=== PATIENT | male | born 1985 ===

== ENCOUNTER 2023-10-21 14:51 | Outpatient (AMB) | payer OTHER, SELFPAY ==
--- NOTE | 2023-10-21 15:12 | MHC.PC.OV ---
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 Allergies No Known Allergies Allergy (Verified 10/21/23 15:19) Tobacco use date assessed: 10/21/23 Dental Screening Dental Screen Date: 10/21/23 Did you have a dental visit in the last 12 months?: Yes Did you have a dental problem in the last 6 months where you did not have access to dental care?: No Was dental information given to patient?: Patient has dentist HPI Recreation Facilities Supervisor Request PE HPI Details New patient Prior PCP:? None since childhood Last office visit/CPE: Acute issue(s): PMHx: abnormal prolactin level, alopecia areata, Lyme disease, joint pain, Low testosterone SurgHx: none FHx: Mom: Asthma. Dad: HTN. Brother: Asthma. SocHx: Nonsmoker. EtOH weekends. No drugs. PFSH Medical History (Updated 10/21/23 @ 16:05 by Don Weinstein) Migraines Torn ACL Surgical History (Updated 10/21/23 @ 15:23 by Soco Duke [facility]) No pertinent past surgical history Family History (Updated 10/21/23 @ 15:27 by Soco Duke CMA) Mother Asthma Father High blood pressure Paternal Grandfather Thyroid disease Maternal Grandmother Thyroid disease Paternal Grandfather Thyroid disease Sister Asthma Brother Asthma Social History (Updated 10/21/23 @ 15:36 by Soco Duke CMA) Household Members: None Both parents involved: No Caregiver staying overnight: No Housing: Apartment Are you a primary cna caregiver to a significant other at home: No Do you presently have visiting nurse or other home services: No 75 years or older and lives alone: No Alcohol intake: current Patient Tobacco Use Status: Never used Tobacco e-Cigarette/Vaping Use: Never Used Special azucena needs: Yes service: No Current occupational status: employed 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 1. Little interest or pleasure in doing things: several days 2. Feeling down, depressed, or hopeless: several days 3. Trouble falling or staying asleep, or sleeping too much: nearly every day 4. Feeling tired or having little energy: nearly every day 5. Poor appetite or overeating: nearly every day 6. Feeling bad about yourself - or that you are a failure or have let yourself or your family down: several days 7. Trouble concentrating on things, such as reading the newspaper or watching television: more than half the days 8. Moving or speaking so slowly that other people could have noticed. Or the opposite - being so fidgety or restless that you have been moving around a lot more than usual: more than half the days 9. Thoughts that you would be better off or of hurting yourself in some way: not at all Total score: 16 Depression Screening Interpretation: Positive Depression Screening Done: Yes Source: Developed by Drs. Rl Neal, Melinda Aguilar, Jun Guerrero and colleagues, with an educational naila from [employer]. Thrive Questionnaire Date Thrive assessed: 10/21/23 I am a: Patient What is your living situation today?: I have a steady place to live Within the past 12 months, did the food you bought not last and you didn't have the money to get more?: Sometimes True Within the past 12 months, did you worry whether your food would run out before you got money to buy more?: Sometimes True Do you have trouble paying for medicines?: No Do you have trouble getting transportation to medical appointments?: No Do you have trouble paying your heating and electricity bill?: No Do you have trouble taking care of your child, family member or friend?: No Do you have trouble with day-to-day activities such as bathing, preparing meals, shopping, managing finances, etc.?: No Are you currently unemployed and looking for a job?: Yes Are you interested in more education?: Yes AUDIT C Alcohol Use Questionnaire (AUDIT-C) 1. How often do you have a drink containing alcohol?: 2-3 times a week 2. How many drinks containing alcohol do you have on a typical day when you are drinking?: 3 or 4 3. How often do you have six or more drinks on one occasion?: Never Total Score: 4 COURTNEY-7 AMB Questionnaire COURTNEY-7 Date COURTNEY - 7 assessed: 10/21/23 Feeling nervous, anxious, or on edge: 1 = Several days Not being able to stop or control worryin = Not at all Worrying too much about different things: 0 = Not at all Trouble relaxin = Nearly every day Being so restless that it is hard to sit still: 2 = More than half the days Becoming easily annoyed or irritable: 1 = Several days Feeling afraid as if something awful might happen: 0 = Not at all Total COURTNEY-7 score (0-4 normal; 5-9 mild; 10-14 moderate; 15-21 severe): 7 Source: Developed by Drs. Rl Neal, Melinda Aguilar, Jun Guerrero and colleagues, with an educational naila from [employer]. Review of Systems Const Denies chills, Denies fatigue, Denies fever(s), Denies headache(s) and Denies weakness ENT Denies dizziness and Denies headache(s) Card Denies chest pain, Denies lightheadedness, Denies dyspnea and Denies other (Palpitations) Resp Denies cough, Denies dyspnea, Denies wheezing and Denies other ( shortness of breath) Musc Denies numbness and Denies tingling Neuro Denies dizziness, Denies headache(s), Denies numbness, Denies tingling, Denies paresthesias and Denies weakness Psych Denies anxiety and Denies depression Endo Denies fatigue Aller/Immun Denies wheezing Physical exam (Primary Care) Vital Signs: Last Vital Signs Pulse 58 10/21/23 15:16 BP 120/78 10/21/23 15:16 Pulse Ox 100 10/21/23 15:16 Oxygen Delivery Method Room Air 10/21/23 15:16 BMI result Body Mass Index 20.7 Tobacco/Smoking Status: Tobacco use Status Tobacco use date assessed 10/21/23 10/21/23 15:39 Patient Tobacco Use Status Never used Tobacco 10/21/23 15:39 e-Cigarette/Vaping Use Never Used 10/21/23 15:39 PHQ-9: PHQ-9 Score PHQ-9: Total score 16 10/21/23 15:43 Depression Screening Interpretation: Positive Thrive Assessment: Date of Thrive Assessment Date Thrive assessed 10/21/23 10/21/23 15:39 Const General: no acute distress and well developed Nutritional Appearance: well nourished Orientation/consciousness: patient oriented x3 [facility] Head: Yes normocephalic and Yes atraumatic Eyes General: appearance normal, both eyes and all related structures Pupils: Equal, round and reactive pupils present EOM: EOMs intact bilaterally Resp Effort & Inspection: normal respiratory effort Auscultation: clear to auscultation bilaterally Cardio Rate: regular rate Rhythm: regular rhythm Heart sounds: S1 normal heart sound present, S2 normal heart sound present, no gallops, no murmurs and no rubs Back/Spine/Pelvis Thoracic/Lumbar Spine: Thoracic/lumbar scoliosis Neuro General: patient oriented x3 and gait normal Cranial nerves: Yes Equal, round and reactive pupils present Psych Affect: normal affect Assessment and Plan Assessment & Plan (1) Abnormal prolactin level: Code(s): R79.89 - Other specified abnormal findings of blood chemistry Plan: And?had?very?mildly?elevated?prolactin?level Should?be?repeated Lab?order (2) Alopecia areata: Code(s): L63.9 - Alopecia areata, unspecified Plan: Alopecia?areata Can?be?referred?to?Dermatology?if?patient?wishes (3) Low testosterone: Code(s): R79.89 - Other specified abnormal findings of blood chemistry Plan: Patient?notes?history?of?low?testosterone?level Will?check?level (4) History of Lyme disease: Code(s): Z86.19 - Personal history of other infectious and parasitic diseases Plan: Patient?notes?history?of?positive?Lyme However?on?review?of?Lyme?test,?only?1?band?is?positive?and?this?is?a?negative?test?result Repeating?test (5) Joint pain: Code(s): M25.50 - Pain in unspecified joint Plan: Unclear?cause Checking?inflammatory?markers We?discussed?that?there?are?many?causes?of?joint?pain?and?we?will?work?at?ruling?these?out?and?investigating. We?did?discuss?that?we?did?not?always?find?an?underlying?diagnosis?and?that?fibromyalgia?and?mood?disorders?are?also?on?the?differential?diagnosis?as?diagnoses?of?exclusion. Encouraged?exercise (6) Scoliosis: Code(s): M41.9 - Scoliosis, unspecified Plan: Patient?has?mild?scoliosis (7) Laboratory exam ordered as part of routine general medical examination: Code(s): Z00.00 - Encounter for general adult medical examination without abnormal findings Plan: Check?lab Orders: Orders Microalbumin, Random (w Creat) Today I10 - Essential (primary) hypertension TSH reflex Free T4 Today Z00.00 - Encounter for general adult medical examination without abnormal findings Lyme IgG/IgM w/reflex to WB Today W57.XXXA - Bitten or stung by nonvenomous insect and other nonvenomous arthropods, initial encounter Erythrocyte Sedimentation Rate Today M25.50 - Pain in unspecified joint Rheumatoid Factor Today M25.50 - Pain in unspecified joint Cyclic Citrullinated Peptide Today M25.50 - Pain in unspecified joint Comprehensive [place]. Panel Fast Today Z00.00 - Encounter for general adult medical examination without abnormal findings Lipid Panel Today Z00.00 - Encounter for general adult medical examination without abnormal findings UA and rflx microscopic Today Z00.00 - Encounter for general adult medical examination without abnormal findings Complete Blood Count Auto Diff Today Z00.00 - Encounter for general adult medical examination without abnormal findings Prolactin Today R79.89 - Other specified abnormal findings of blood chemistry CRP High Sensitivity Today M25.50 - Pain in unspecified joint Coding Level of Care Code New Pt Level 3 (18849) Diagnoses Abnormal prolactin level R79.89 Alopecia areata L63.9 Low testosterone R79.89 History of Lyme disease Z86.19 Joint pain M25.50 Scoliosis M41.9 Laboratory exam ordered as part of routine general medical examination Z00.00
[2023-10-21 15:16] VITALS: BP 120/78; PULSE 58; O2SAT 100; BMI 20.7
== END 2023-10-21 16:16 | disposition home or self-care (01) ==
PROVIDERS: PCP Family Medicine; Visit Provider Family Medicine
DX: R79.89 Other specified abnormal findings of blood chemistry (principal); L63.9 Alopecia areata, unspecified; Z86.19 Personal history of other infectious and parasitic diseases; M25.50 Pain in unspecified joint; M41.9 Scoliosis, unspecified; Z00.00 Encounter for general adult medical examination without abnormal findings
CPT/HCPCS: 99203

== ENCOUNTER 2024-01-06 07:27 | Outpatient (REF) | payer OTHER, SELFPAY ==
[2024-01-06 11:34] LABS: MANUAL DIFF FLAG NO
[2024-01-06 11:35] LABS: Eosinophils Absolute Auto 0.1 X10*3/uL (0.0-0.4); Eosinophils Percent Auto 1.7 % (0-4); Hematocrit 41.7 % (42.0-52.0); Hemoglobin 13.8 g/dl (14.0-18.0); Lymphocytes Absolute Auto 1.9 X10*3/uL (1.2-4.9); Lymphocytes Percent Auto 45.2 % (20-40); Mean Corpuscular HGB Conc 33.1 g/dl (31.0-36.0); Mean Corpuscular Hemoglobin 29.7 pg (27.0-33.0); Mean Corpuscular Volume 89.7 fL (80.0-98.0); Mean Platelet Volume 10.7 fL (9.4-12.4); Monocytes Absolute Auto 0.4 X10*3/uL (0.1-1.2); Monocytes Percent Auto 9.4 % (2-11); Neutrophils Absolute Auto 1.8 x10*3/uL (2.0-8.3); Neutrophils Percent Auto 42.7 % (45-73); Platelet Count 293 X10*3/uL (160-400); Red Blood Count 4.65 X10*6/uL (4.60-5.80); Red Cell Distribution Width 12.8 % (11.0-16.0); White Blood Count 4.1 X10*3/uL (4.8-10.8)
[2024-01-06 11:51] LABS: Appearance Urine Clear; Color Urine Yellow; Glucose Urine UA Negative (Negative); Leukocyte Esterase Urine Negative (Negative); Nitrite Urine Negative (Negative); PH 6.5 (5.0-9.0); Specific Gravity - Urine <= 1.005 (1.005-1.025); Urine Blood Negative (Negative); Urine Ketones Negative (Negative); Urine Protein Negative (Neg-Trace)
[2024-01-06 11:53] LABS: Rheumatoid Factor < 13.0 IU/mL (<15.0)
[2024-01-06 12:02] LABS: Creatinine Urine 34.52 mg/dL; Microalbumin Urine < 5.0 mg/L
[2024-01-06 12:27] LABS: Alanine Aminotransferase 24 U/L (0-40); Albumin Level 4.9 g/dL (3.5-5.0); Alkaline Phosphatase 55 U/L (39-117); Anion Gap 14 (12-20); Aspartate Amino Transferase 22 U/L (5-37); Bilirubin Total 0.4 mg/dL (0.0-1.0); Blood Urea Nitrogen 18 mg/dL (9-16); Carbon Dioxide 26 mmol/L (22-29); Chloride 107 mmol/L (96-108); Cholesterol 191 mg/dL (<200); Estimated Glomerular Filt Rate > 60; Glucose Fasting 106 mg/dL (60-99); HDL Cholesterol 75 mg/dL (>40); LDL Cholesterol Calculated 107 mg/dL (<100); Potassium 4.6 mmol/L (3.3-5.1); Sodium 142 mmol/L (135-145); Total Protein 7.5 g/dL (6.5-8.0); Triglycerides 47 mg/dL (<150)
[2024-01-06 12:29] LABS: Erythrocyte Sedimentation Rate 2 MM/HR (0-15)
[2024-01-06 12:32] LABS: TSH reflex Free T4 1.22 uIU/mL (0.32-4.0)
[2024-01-08 01:48] LABS: Prolactin 4.6 ng/mL (2.0-18.0)
[2024-01-08 03:13] LABS: Lyme Abs Screen <0.90 index
[2024-01-10 13:43] LABS: CRP High Sensitivity <0.3 mg/L
[2024-01-10 15:08] LABS: Cyclic Citrullinated Peptide <16 UNITS
== END 2024-01-06 07:28 | disposition home or self-care (01) ==
LOC: HO.WFDLDS 07:27
PROVIDERS: Visit Provider Family Medicine
DX: Z00.00 Encounter for general adult medical examination without abnormal findings (principal); T14.8XXA Other injury of unspecified body region, initial encounter; W57.XXXA Bitten or stung by nonvenomous insect and other nonvenomous arthropods, initial encounter; I10 Essential (primary) hypertension; R79.89 Other specified abnormal findings of blood chemistry; M25.50 Pain in unspecified joint
CPT/HCPCS: 36415; 80053; 80061; 81003; 82043; 82570; 84146; 84443; 85025; 85652; 86141; 86200; 86431; 86617; 86618

== ENCOUNTER 2024-01-11 13:51 | Outpatient (AMB) | payer OTHER, SELFPAY ==
[2024-01-11 13:53] VITALS: BP 126/74; PULSE 84; RESP 13; TEMP 36.6; O2SAT 99; BMI 20.7
--- NOTE | 2024-01-11 13:53 | A.OFFPC_ITS ---
Vital Signs 01/11/24 13:53 Height 5 ft 10 in Weight 144 lb 6 oz BMI 20.7 BP 126/74 Blood Pressure Location Rt brachial Position Sitting Respiration 13 Pulse 84 Pulse Source Pulse Oximeter Temp 97.9 F Temp Source Temporal Artery Scan Pulse Oximetry (%) 99 Oxygen Delivery Method Room Air Intake Visit Reasons: CPE with f/u labs and health maint. Business Banking Officer Required: No Accompanied by: Self / Same As Patient Allergies No Known Allergies Allergy (Verified 01/11/24 13:58) Tobacco use date assessed: 01/11/24 Dental Screening Dental Screen Date: 01/11/24 Did you have a dental visit in the last 12 months?: Yes Did you have a dental problem in the last 6 months where you did not have access to dental care?: No Was dental information given to patient?: Patient has dentist HPI CPE with f/u labs and health maint. HPI Details 38 y/o male presents for a CPE with f/u labs and health maintenance. Labs were drawn 01/06/24. Reviewed labs with pt. WBC mildly low at 4.1. Hgb/Hct mildly low. Elevated fasting glucose of 106. Triglycerides 47. TC 191. LDL 107. HDL 75. Pt reports GERD and has been using tums for relief. Pt reports a slight tremor. [facility] Medical History (Updated 01/11/24 @ 14:39 by Don Weinstein) Migraines Torn ACL Surgical History H/O wisdom tooth extraction No pertinent past surgical history Family History Mother Asthma Father High blood pressure Paternal Grandfather Thyroid disease Maternal Grandmother Thyroid disease Paternal Grandfather Thyroid disease Sister Asthma Brother Asthma Other Substance abuse Social History Household Members: None Both parents involved: No Caregiver staying overnight: No Housing: Apartment Are you a primary auto care center manager to a significant other at home: No Do you presently have visiting nurse or other home services: No 75 years or older and lives alone: No Alcohol intake: current Patient Tobacco Use Status: Never used Tobacco e-Cigarette/Vaping Use: Never Used Special azucena needs: Yes service: No Current occupational status: employed 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 1. Little interest or pleasure in doing things: not at all 2. Feeling down, depressed, or hopeless: not at all 3. Trouble falling or staying asleep, or sleeping too much: not at all 4. Feeling tired or having little energy: nearly every day 5. Poor appetite or overeating: not at all 6. Feeling bad about yourself - or that you are a failure or have let yourself or your family down: not at all 7. Trouble concentrating on things, such as reading the newspaper or watching television: not at all 8. Moving or speaking so slowly that other people could have noticed. Or the opposite - being so fidgety or restless that you have been moving around a lot more than usual: not at all 9. Thoughts that you would be better off or of hurting yourself in some way: not at all Total score: 3 Depression Screening Interpretation: Negative Depression Screening Done: Yes 52110 - PHQ-9 Billing: Yes Source: Developed by Drs. Rl Neal, Melinda Aguilar, Jun Guerrero and colleagues, with an educational naila from [email or web address]. Thrive Questionnaire Date Thrive assessed: 01/11/24 I am a: Patient What is your living situation today?: I have a steady place to live Within the past 12 months, did the food you bought not last and you didn't have the money to get more?: Never true Within the past 12 months, did you worry whether your food would run out before you got money to buy more?: Never true Do you have trouble paying for medicines?: No Do you have trouble getting transportation to medical appointments?: No Do you have trouble paying your heating and electricity bill?: No Do you have trouble taking care of your child, family member or friend?: No Do you have trouble with day-to-day activities such as bathing, preparing meals, shopping, managing finances, etc.?: No Are you currently unemployed and looking for a job?: No Are you interested in more education?: Yes Please select the resources that you would like help with: Education Currently or been in a relationship where the following occur: no concerns reported THRIVE Score: 0 AUDIT C Alcohol Use Questionnaire (AUDIT-C) 1. How often do you have a drink containing alcohol?: 2-3 times a week 2. How many drinks containing alcohol do you have on a typical day when you are drinking?: 3 or 4 3. How often do you have six or more drinks on one occasion?: Less than monthly Total Score: 5 COURTNEY-7 AMB Questionnaire COURTNEY-7 Date COURTNEY - 7 assessed: 10/21/23 Feeling nervous, anxious, or on edge: 1 = Several days Not being able to stop or control worryin = Not at all Worrying too much about different things: 0 = Not at all Trouble relaxin = Not at all Being so restless that it is hard to sit still: 0 = Not at all Becoming easily annoyed or irritable: 0 = Not at all Feeling afraid as if something awful might happen: 0 = Not at all Total COURTNEY-7 score (0-4 normal; 5-9 mild; 10-14 moderate; 15-21 severe): 1 Source: Developed by Drs. Rl Neal, Melinda Aguilar, Jun Guerrero and colleagues, with an educational naila from [email or web address]. COURTNEY-7 Assessment Billing COURTNEY-7 Assessment Tool: COURTNEY-7 Assessment 08361 Review of Systems Const Denies chills, Denies fatigue, Denies fever(s), Denies headache(s) and Denies weakness Eyes Denies change in vision ENT Denies dizziness, Denies headache(s), Denies hearing loss, Denies nasal congestion, Denies sinus pain, Denies sinus pressure and Denies sore throat Card Denies chest pain, Denies lightheadedness, Denies dyspnea and Denies other (palpitations) Resp Denies cough, Denies dyspnea and Denies wheezing GI Denies abdominal pain, Denies melena, Denies hematochezia, Denies change in bowel habits, Denies dyspepsia and Denies nausea Denies hematuria and Denies dysuria Musc Denies abnormal gait, Denies myalgias, Denies arthralgias, Denies numbness and Denies tingling Skin/Breast Denies rash, Denies unusual bruising and Denies wounds Neuro Denies abnormal gait, Denies dizziness, Denies headache(s), Denies memory loss, Denies numbness, Denies Sensory deficit (Neuro), Denies tingling, Reports tremor(s) and Denies weakness Psych Denies anxiety, Denies depression and Denies memory loss Endo Denies cold intolerance, Denies fatigue, Denies heat intolerance, Denies polydipsia and Denies polyuria Brett/Lymph Denies easy bleeding and Denies easy bruising Aller/Immun Denies wheezing Physical exam (Primary Care) Vital Signs: Last Vital Signs Temp 97.9 F 01/11/24 13:53 Pulse 84 01/11/24 13:53 Resp 13 01/11/24 13:53 BP 126/74 01/11/24 13:53 Pulse Ox 99 01/11/24 13:53 Oxygen Delivery Method Room Air 01/11/24 13:53 BMI result Body Mass Index 20.7 Tobacco/Smoking Status: Tobacco use Status Tobacco use date assessed 01/11/24 01/11/24 14:03 Patient Tobacco Use Status Never used Tobacco 01/11/24 14:03 e-Cigarette/Vaping Use Never Used 01/11/24 14:03 PHQ-9: PHQ-9 Score PHQ-9: Total score 3 01/11/24 14:18 Depression Screening Interpretation: Negative Thrive Assessment: Date of Thrive Assessment Date Thrive assessed 01/11/24 01/11/24 14:03 Currently or been in a relationship where the following occur: no concerns reported Const General: no acute distress, well developed, alert and awake Nutritional Appearance: well nourished Orientation/consciousness: patient oriented x3 HEN[facility] Head: Yes normocephalic and Yes atraumatic Ears: hearing grossly normal bilaterally and TM's normal bilaterally General nose exam: Normal external nose present and Normal nares present Mouth: Normal oral and palatal mucosa present and moist mucous membranes Teeth and gingiva: dentition normal Throat: Yes posterior oropharynx normal Eyes General: appearance normal, both eyes and all related structures Pupils: Equal, round and reactive pupils present and Pupil accommodation reflex normal EOM: EOMs intact bilaterally Neck Neck: Yes normal visual inspection, Yes no lymphadenopathy and Yes trachea midline Thyroid: Thyroid normal Carotids: no bruits Lymphatic: no lymphadenopathy noted Chest Chest palpation & inspection: normal inspection of the chest Resp Effort & Inspection: normal respiratory effort Auscultation: clear to auscultation bilaterally Cardio Rate: regular rate Rhythm: regular rhythm Heart sounds: S1 normal heart sound present, S2 normal heart sound present, no gallops, no murmurs and no rubs Bruits: no abdominal aortic bruits and no carotid bruits GI Palpation (GI): No Abdominal aortic bruit present, Soft to palpation, nontender, No hepatosplenomegaly present and No Rebound tenderness present Auscultation: normal bowel sounds General: Yes no CVA tenderness Back/Spine/Pelvis Back: no CVA tenderness Cervical Spine: cervical ROM normal and No Cervical spine tenderness Thoracic/Lumbar Spine: thoraco-lumbar ROM normal, No pain with thoraco-lumbar ROM, No thoracic spinal tenderness and No lumbar spinal tenderness Skin Lesions: no lesions Rashes: no rashes Trauma: no lacerations or abrasions Wounds: no wounds Nails: normal Neuro Other: Tremor of his tongue and fine tremor of his hands General: patient oriented x3 Cranial nerves: Yes Equal, round and reactive pupils present Cognition (Neuro): normal cognition Gait exam (Neuro): Normal gait present Motor exam (neuro): 5/5 motor strength present throughout Sensory Exam: No Sensory deficit (Neuro) Deep tendon reflexes (DTR's): Right patellar reflex intensity grade: 2+ and Left patellar reflex intensity grade: 2+ Extrem General: Yes normal to inspection and No edema Psych Appearance: grossly normal Affect: normal affect Attitude: cooperative Thought process: Normal thought process present Results AMB Hemoglobin A1c AMB Hemoglobin A1c 4.9 % Last Edit by Soco Duke CMA on 01/11/24 14:32 Assessment and Plan Assessment & Plan (1) Mild anemia: Code(s): D64.9 - Anemia, unspecified Plan: Recheck?CBC, iron,?B12?and?ferritin (2) Tremor: Code(s): R25.1 - Tremor, unspecified Plan: Fine?tremor?at?bilateral?hands?and?tongue Lab?work?unrevealing Unclear?cause Referred?to?neurology (3) Alopecia areata: Code(s): L63.9 - Alopecia areata, unspecified Plan: Referred?to?dermatology (4) GERD (gastroesophageal reflux disease): Code(s): K21.9 - Gastro-esophageal reflux disease without esophagitis Plan: GERD?symptoms?more?than?once?a?week Trial?omeprazole (5) Elevated fasting glucose: Code(s): R73.01 - Impaired fasting glucose Plan: Mildly?elevated?fasting?blood?sugars;?106 A1c?4.9%?is?within?normal?range We?can?monitor (6) Adult general medical exam: Code(s): Z00.00 - Encounter for general adult medical examination without abnormal findings Plan: 38-year-old?male?presents?for?an?extended?exam Orders: Orders IRON PROFILE Today D64.9 - Anemia, unspecified AMB Hemoglobin A1c Today Z13.9 - Encounter for screening, unspecified Reticulocyte Count Today D64.9 - Anemia, unspecified Testosterone, Free/Total Today R79.89 - Other specified abnormal findings of blood chemistry Complete Blood Count Auto Diff Today D64.9 - Anemia, unspecified, Z00.00 - Encounter for general adult medical examination without abnormal findings Ferritin Today D64.9 - Anemia, unspecified Vitamin B12 and Folate Today D64.9 - Anemia, unspecified, E53.8 - Deficiency of other specified B group vitamins Referrals Dermatology Referral L63.9 - Alopecia areata, unspecified Neurology Referral R25.1 - Tremor, unspecified Medications: New omeprazole 20 mg PO DAILY 30 days 30 caps 2RF Coding Level of Care Code Est Pt Level 3 (86754) Est Pt Prev Care 18-39y(72521) Diagnoses Mild anemia D64.9 Tremor R25.1 Alopecia areata L63.9 GERD (gastroesophageal reflux disease) K21.9 Elevated fasting glucose R73.01 Adult general medical exam Z00.00 Additional Codes COURTNEY-7 Assessment Billing - COURTNEY-7 Assessment Tool: COURTNEY-7 Assessment [id number] ([id number])
== END 2024-01-11 15:09 | disposition home or self-care (01) ==
PROVIDERS: PCP Family Medicine; Visit Provider Family Medicine
DX: Z00.00 Encounter for general adult medical examination without abnormal findings (principal); D64.9 Anemia, unspecified; R25.1 Tremor, unspecified; L63.9 Alopecia areata, unspecified; K21.9 Gastro-esophageal reflux disease without esophagitis; R73.01 Impaired fasting glucose
CPT/HCPCS: 83036; 99213; 99395

== ENCOUNTER 2024-01-28 07:09 | Outpatient (REF) | payer OTHER, SELFPAY ==
[2024-01-28 11:36] LABS: MANUAL DIFF FLAG NO
[2024-01-28 12:00] LABS: Basophils Absolute Auto 0.1 X10*3/uL (0.0-0.2); Basophils Percent Auto 1.5 % (0-2); Eosinophils Absolute Auto 0.2 X10*3/uL (0.0-0.4); Eosinophils Percent Auto 3.5 % (0-4); Hemoglobin 13.6 g/dl (14.0-18.0); Imm Gran Abs Auto 0.02 X10*3/uL (0.00-0.03); Imm Gran Pct Auto 0.4 % (0.0-0.4); Immature Retic Fraction 5.8 % (2.3-13.4); Lymphocytes Absolute Auto 2.1 X10*3/uL (1.2-4.9); Lymphocytes Percent Auto 46.3 % (20-40); Mean Corpuscular HGB Conc 32.4 g/dl (31.0-36.0); Mean Corpuscular Hemoglobin 29.9 pg (27.0-33.0); Mean Corpuscular Volume 92.3 fL (80.0-98.0); Mean Platelet Volume 10.7 fL (9.4-12.4); Monocytes Absolute Auto 0.4 X10*3/uL (0.1-1.2); Monocytes Percent Auto 8.7 % (2-11); Neutrophils Absolute Auto 1.8 x10*3/uL (2.0-8.3); Neutrophils Percent Auto 39.6 % (45-73); Platelet Count 275 X10*3/uL (160-400); Red Blood Count 4.55 X10*6/uL (4.60-5.80); Red Cell Distribution Width 12.6 % (11.0-16.0); Retic HGB Equivalent 32.9 pg (30.0-35.0); Reticulocytes Absolute 0.044 X10*6/uL (0.026-0.095); White Blood Count 4.6 X10*3/uL (4.8-10.8)
[2024-01-28 12:02] LABS: RET ABN SCTR 1
[2024-01-28 12:42] LABS: Iron 77 mcg/dL (45-160); Percent Iron Saturation 27 % (15-50); Total Iron Binding Capacity 287 mcg/dL (228-428); Unsaturated Iron Binding 210 ug/dL
[2024-01-28 12:44] LABS: Ferritin 78 ng/mL (20-250)
[2024-01-28 13:20] LABS: Folate 9.2 ng/mL (> or = 4.0); Vitamin B12 646 pg/mL (200-900)
[2024-02-03 12:43] LABS: Testosterone, Free 58.2 pg/mL (35.0-155.0); Testosterone, Total 458 ng/dL (250-1100)
== END 2024-01-28 07:10 | disposition home or self-care (01) ==
LOC: HO.WFDLDS 07:09
PROVIDERS: Visit Provider Family Medicine
DX: Z00.00 Encounter for general adult medical examination without abnormal findings (principal); D64.9 Anemia, unspecified; R79.89 Other specified abnormal findings of blood chemistry; E53.8 Deficiency of other specified B group vitamins
CPT/HCPCS: 36415; 82607; 82728; 82746; 83540; 84402; 84403; 85025; 85045

== ENCOUNTER 2024-02-08 15:21 | Outpatient (AMB) | payer OTHER, SELFPAY ==
[2024-02-08 15:24] VITALS: BP 124/80; PULSE 60; O2SAT 100; BMI 20.5
--- NOTE | 2024-02-08 15:24 | MHC.PC.OV ---
Vital Signs 02/08/24 15:24 Height 5 ft 10 in Weight 143 lb BMI 20.5 BP 124/80 Blood Pressure Location Lt brachial Position Sitting Pulse 60 Pulse Source Pulse Oximeter Pulse Oximetry (%) 100 Oxygen Delivery Method Room Air Intake Visit Reasons: follow-up?GERD,?tremor,?anemia,testosterone Intake Note: Patient is here for follow up on GERD, tremor, anemia, and testosterone. Allergies No Known Allergies Allergy (Verified 02/08/24 15:27) Tobacco use date assessed: 02/08/24 Dental Screening Dental Screen Date: 01/11/24 HPI follow-up?GERD,?tremor,?anemia,testosterone HPI Details 38 y/o male presents to f/u GERD, tremor, anemia and testosterone. Pt has fine tremor bilateral hands and tremor of tongue. Had referred him to Neurology. Labs were drawn 01/28/24. Reviewed labs with pt. Ongoing anemia. Testosterone levels are fine and at 458 ng/dL. Fr testosterone 58.2 pg/mL. Pt reports GERD has been controlled without the omeprazole. He has been watching what he eats/his trigger foods. PFS Medical History Migraines Torn ACL Surgical History H/O wisdom tooth extraction No pertinent past surgical history Family History Mother Asthma Father High blood pressure Paternal Grandfather Thyroid disease Maternal Grandmother Thyroid disease Paternal Grandfather Thyroid disease Sister Asthma Brother Asthma Other Substance abuse Social History Household Members: None Both parents involved: No Caregiver staying overnight: No Housing: Apartment Are you a primary intensive care anaesthetist to a significant other at home: No Do you presently have visiting nurse or other home services: No 75 years or older and lives alone: No Alcohol intake: current Patient Tobacco Use Status: Never used Tobacco e-Cigarette/Vaping Use: Never Used Special azucena needs: Yes service: No Current occupational status: employed Current occupation: warehouse management worker Cognitive needs: No Hearing needs: No Vision needs: No Questionnaire Thrive Questionnaire Date Thrive assessed: 01/11/24 COURTNEY-7 AMB Questionnaire COURTNEY-7 Date COURTNEY - 7 assessed: 10/21/23 Source: Developed by Drs. Rl Neal, Melinda Aguilar, Jun Guerrero and colleagues, with an educational naila from [employer] Review of Systems Const Denies chills, Denies fatigue, Denies fever(s), Denies headache(s) and Denies weakness ENT Denies dizziness and Denies headache(s) Card Denies chest pain, Denies lightheadedness, Denies dyspnea and Denies other (Palpitations) Resp Denies cough, Denies dyspnea, Denies wheezing and Denies other ( shortness of breath) Musc Denies numbness and Denies tingling Neuro Denies dizziness, Denies headache(s), Denies numbness, Denies tingling, Denies paresthesias and Denies weakness Psych Denies anxiety and Denies depression Endo Denies fatigue Aller/Immun Denies wheezing Physical exam (Primary Care) Vital Signs: Last Vital Signs Pulse 60 02/08/24 15:24 BP 124/80 02/08/24 15:24 Pulse Ox 100 02/08/24 15:24 Oxygen Delivery Method Room Air 02/08/24 15:24 BMI result Body Mass Index 20.5 Tobacco/Smoking Status: Tobacco use Status Tobacco use date assessed 02/08/24 02/08/24 15:28 Patient Tobacco Use Status Never used Tobacco 02/08/24 15:28 e-Cigarette/Vaping Use Never Used 02/08/24 15:28 Thrive Assessment: Date of Thrive Assessment Date Thrive assessed 01/11/24 02/08/24 15:28 Const General: no acute distress and well developed Nutritional Appearance: well nourished Orientation/consciousness: patient oriented [facility] Head: Yes normocephalic and Yes atraumatic Eyes General: appearance normal, both eyes and all related structures Pupils: Equal, round and reactive pupils present EOM: EOMs intact bilaterally Resp Effort & Inspection: normal respiratory effort Auscultation: clear to auscultation bilaterally Cardio Rate: regular rate Rhythm: regular rhythm Heart sounds: S1 normal heart sound present, S2 normal heart sound present, no gallops, no murmurs and no rubs Neuro General: patient oriented x3 and gait normal Cranial nerves: Yes Equal, round and reactive pupils present Psych Affect: normal affect Assessment and Plan Assessment & Plan (1) Mild anemia: Code(s): D64.9 - Anemia, unspecified Plan: Mild?chronic?anemia?with?mildly?low?white?count Retic?count?is?inappropriately?normal Iron?studies?and?B12?within?normal?range No?blood?in?stools Denies?excessive?alcohol Unclear?cause Referred?to?Hematology-Oncology (2) GERD (gastroesophageal reflux disease): Code(s): K21.9 - Gastro-esophageal reflux disease without esophagitis Plan: Patient?has?not?picked?up?omeprazole He?says?he?will?try?to?control?his?triggers Will?follow-up (3) Tremor: Code(s): R25.1 - Tremor, unspecified Plan: Mild?ongoing?tremor?and?he?is?referred?to?neurology Has?appointment?in?May?and?we?can?follow-up?in?June (4) Low testosterone: Code(s): R79.89 - Other specified abnormal findings of blood chemistry Plan: Patient?says?he?was?told?he?had?a?history?of?low?testosterone T?levels?are?in?normal?range Coding Level of Care Code Est Pt Level 4 (48871) Diagnoses Mild anemia D64.9 GERD (gastroesophageal reflux disease) K21.9 Tremor R25.1 Low testosterone R79.89
== END 2024-02-08 16:04 | disposition home or self-care (01) ==
PROVIDERS: PCP Family Medicine; Visit Provider Family Medicine
DX: D64.9 Anemia, unspecified (principal); K21.9 Gastro-esophageal reflux disease without esophagitis; R25.1 Tremor, unspecified; R79.89 Other specified abnormal findings of blood chemistry
CPT/HCPCS: 99214

== ENCOUNTER → 2024-03-10 14:00 | Outpatient (BNV) | payer OTHER, SELFPAY | PROVIDERS: PCP Family Medicine; Referring Provider Family Medicine; Visit Provider Internal Medicine Medical Oncology | DX: D64.9 Anemia, unspecified (principal) | CPT/HCPCS: 99204; 99213 ==